=== PATIENT | male | born 1985 | race Caucasian/White ===

== ENCOUNTER → 2020-12-17 15:28 | Outpatient (BNVA) | payer SELFPAY | PROVIDERS: Family Provider Nurse Practitioner; PCP Nurse Practitioner; Visit Provider Nurse Practitioner | DX: K59.00 Constipation, unspecified (principal) | CPT/HCPCS: 74018 ==

== ENCOUNTER 2021-08-30 14:28 | Emergency (ER) | payer SELFPAY ==
[2021-08-30 14:39] VITALS: BP 134/86; PULSE 88; RESP 18; TEMP 36.6; O2SAT 99; BMI 25.1
[2021-08-30 14:48] VITALS: BP 134/86; PULSE 88; RESP 18; TEMP 36.8; O2SAT 99
--- NOTE | 2021-08-30 14:56 | ED_ITS ---
Documented by User: ALLISON Bañuelos 08/31/21 07:06 HPI - Animal Bite General: Chief Complaint: Animal Bite Stated Complaint: finger lac, dog bite Time Seen by Provider: 08/30/21 14:56 Source: patient Mode of arrival: ambulatory Limitations: no limitations History of Present Illness: Patient is a nice 36-year-old male who presents to ED today for evaluation of a right ring finger injury. Patient states just prior to arrival his household pet meribusalinas was fighting with another dog over food and he tried to break them up and his pitbull bit his finger. Last tetanus was approximately 8 to 9 years ago. complaint: animal bite Onset (ago): hour(s) Animal: dog Description of animal: household pet, immunizations UTD and appeared well Mechanism: bite Location - Extremities: Right: hand Severity scale (1-10): 10 Context: animals fighting Associated symptoms: Reports no associated symptoms Treatments prior to arrival: irrigation Related Data: Patient tetanus UTD: No Review of Systems Musc: Reports: extremity pain (R 4th finger) Skin/Breast: Reports: other (laceration/amputation R 4th finger) [facility] ED PFSH: Medical History Acid reflux Anxiety Surgical History History of inguinal hernia repair Left inguinal floor weakness, direct hernia. 2012 [facility] Family History Other Cancer Diabetes Hypertension Stroke Denies family history of Dementia Lung disease Social History Smoking and tobacco status: never smoked Second hand smoke exposure: No Smoking risk assessment/counseling performed?: No Alcohol intake: current Alcohol intake frequency: 0-2 Drinks per Day Alcohol type: beer Desire information about alcohol rehabilitation?: No Counseling given: No Desire information about substance/drug rehabilitation?: No Counseling given: No Adopted: No Caregiver/support person: No Lives independently: Yes Household members: none Housing: House Marital status: Single Number of children: 0 service: No 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 occupational 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 History of recent travel: No Current gender identity: Male Physical Exam Const: COMMON NORMALS: no acute distress, average body habitus, patient oriented x3, no limitations, healthy appearing, alert and well nourished Extremity: GENERAL: Yes normal exam except as noted RIGHT UPPER EXTREMITY: Yes hand & digits (see below) OTHER: pt has a large bite wound/amputation to the dorsal aspect of his R ring finger just proximal to the nail fold; he has avulsion of his nail and bite wound is clearly through his distal phalax; he has a small puncture wound to the volar aspect of the distal digit; no bleeding currently; distal tip at this time is normal color/temp; he reports sensation is intact Neuro: COMMON NORMALS: patient oriented x3 SENSORIUM/ORIENTATION: Yes alert Course Consultations: Consultation #1: Dr. Hammonds-will come evaluate in ED Dr. Hammonds came and evaluated injury in the ED and feels distal tip is still viable based on adequate blood supply still present and sensation still intact. Recommends extensive irrigation and loosely close wound and splint and he will follow up in office. Vital Signs: Vital signs: Vital Signs Temperature 98.2 F 08/30/21 14:48 Pulse Rate 88 08/30/21 14:48 Respiratory Rate 18 08/30/21 14:48 Blood Pressure 134/86 08/30/21 14:48 Pulse Oximetry 99 08/30/21 14:48 MDM - Animal Bite Lab Data : 08/30/21 16:50 08/30/21 16:50 Radiology Impressions Finger X-Ray 08/30/21 14:56 Impression: Fracture of the base of the distal phalanx of the right fourth finger. Laboratory Results WBC 11.2 10^3/uL (4.0-10.0) H 08/30/21 16:50 RBC 4.73 10^6/uL (4.1-5.3) 08/30/21 16:50 Hgb 14.8 g/dL (11.7-16.6) 08/30/21 16:50 Hct 44.3 % (42.0-52.0) 08/30/21 16:50 MCV 93.7 fl (80-94) 08/30/21 16:50 MCH 31.3 pg (28.0-34.0) 08/30/21 16:50 MCHC 33.4 g/dL (30.0-36.0) 08/30/21 16:50 RDW 11.9 % (12.1-15.1) L 08/30/21 16:50 Plt Count 220 10^3/cmm (130-400) 08/30/21 16:50 MPV 11.4 fL (7.4-10.4) H 08/30/21 16:50 Neut % (Auto) 81.6 % 08/30/21 16:50 Lymph % (Auto) 11.3 % 08/30/21 16:50 Patrick % (Auto) 5.8 % 08/30/21 16:50 Eos % (Auto) 0.2 % 08/30/21 16:50 Baso % (Auto) 0.4 % 08/30/21 16:50 Neut # (Auto) 9.12 10^3/uL (1.8-7.7) H 08/30/21 16:50 Lymph # (Auto) 1.3 10^3/uL (0.8-4.8) 08/30/21 16:50 Patrick # (Auto) 0.7 10^3/uL (0.2-0.9) 08/30/21 16:50 Eos # (Auto) 0.0 10^3/uL (0.0-0.8) 08/30/21 16:50 Baso # (Auto) 0.0 10^3/uL (0.0-0.1) 08/30/21 16:50 Nucleated RBC % (auto) 0 % 08/30/21 16:50 Nucleated RBCs # 0.0 /100WBC 08/30/21 16:50 Sodium 139 mmol/L (136-145) 08/30/21 16:50 Potassium 4.3 mmol/L (3.5-5.1) 08/30/21 16:50 Chloride 102 mmol/L (98-107) 08/30/21 16:50 Carbon Dioxide 25 mmol/L (22-29) 08/30/21 16:50 Anion Gap 16.3 (5-19) 08/30/21 16:50 BUN 13 mg/dL (6-20) 08/30/21 16:50 Creatinine 1.0 mg/dL (0.7-1.2) 08/30/21 16:50 GFR Calculation 84.1 mL/min (90-130) L 08/30/21 16:50 Glucose 101 mg/dL (65-115) 08/30/21 16:50 Calculated Osmolality 288 mOsm/kg (285-295) 08/30/21 16:50 Calcium 9.7 mg/dL (8.5-10.5) 08/30/21 16:50 Total Bilirubin 0.3 mg/dL (0.15-1.2) 08/30/21 16:50 AST 96 U/L (0-40) H 08/30/21 16:50 ALT 242 U/L (0-41) H 08/30/21 16:50 Alkaline Phosphatase 108 IU/L (40-130) 08/30/21 16:50 Total Protein 7.6 g/dL (6.6-8.7) 08/30/21 16:50 Albumin 4.5 g/dL (3.5-5.2) 08/30/21 16:50 Globulin 3.1 g/dL (1.3-4.6) 08/30/21 16:50 Discharge Plan Discharge Patient Disposition: Home Clinical Impression: Open fracture of distal phalanx of digit of right hand, Open wound of right ring finger due to dog bite Condition: Stable Prescriptions: New Bactrim DS 800-160 mg tablet 1 tab PO BID 10 Days Qty: 20 0RF No Action omeprazole 10 mg capsule,delayed release(DR/EC) 10 mg PO DAILY 0RF Discharge Orders: Discharge ED (Routine); Ordered 08/30/21 Ordered By: Jerrod Rajan Referrals: Alfredo Forbes, PHYSICIAN RECRUITER-C [Primary Care Provider] - Discharge Diet: Regular Discharge Activity: Limit activity as instructed Patient Instructions: Animal Bite (ED), Finger Fracture (ED), Opioid Safety Activity Restrictions/Additional Instructions: Follow-up with medical provider as directed. Case management should be contacting you in the next several days to set up an appointment with Ortho for follow-up. take medications as prescribed. Return to the ER or your medical provider if condition worsens. Please read and understand discharge instructi ons. Thank you for choosing [facility] for your healthcare needs today. Please realize this is an emergency room and that we are providing you with a medical screening exam and this may not be complete and all inclusive of all the testing and or work up that you may need to determine your ailment or severity of your illness. It is very important that you follow up as instructed or that you return to the Emergency Department should you have concerns or if your condition changes or worsens in any way. Sign Out Sign Out Data: Patient Sign Out occurred on 08/30/21 at 17:06. Patient's care was discussed, and care was transferred from to ALLISON Márquez. Coding Level of Care Code ED Tube Depatcher for Chg Fwd Exam Expanded Problem Focused Documented by User: ALLISON Márquez 08/31/21 03:23 HPI - Animal Bite General: Chief Complaint: Animal Bite Stated Complaint: finger lac, dog bite Time Seen by Provider: 08/30/21 14:56 PFS ED PFSH: Medical History Acid reflux Anxiety Surgical History History of inguinal hernia repair Left inguinal floor weakness, direct hernia. 2012 [facility] Family History Other Cancer Diabetes Hypertension Stroke Denies family history of Dementia Lung disease Social History Smoking and tobacco status: never smoked Second hand smoke exposure: No Smoking risk assessment/counseling performed?: No Alcohol intake: current Alcohol intake frequency: 0-2 Drinks per Day Alcohol type: beer Desire information about alcohol rehabilitation?: No Counseling given: No Desire information about substance/drug rehabilitation?: No Counseling given: No Adopted: No Caregiver/support person: No Lives independently: Yes Household members: none Housing: House Marital status: Single Number of children: 0 service: No 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 occupational 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 History of recent travel: No Current gender identity: Male Procedures Laceration Laceration 1: Site: hand (4th digit) Side (If applicable): right Size (cm): 2 Description: irregular Depth: simple, single layer Local Anesthetic: lidocaine 2% (Digital block performed.) Amount of anesthesia used (mL): 6 Pre-repair: irrigated extensively (Nurse irrigated the ear extensively wit h normal saline and used surgical scrub) Skin layer closed with: nylon (3 sutures) and vicryl (1 suture ) Size (cm): 4-0 Number of sutures: 4 Technique: simple, interrupted Nerve Block Nerve Block 1: Time out performed: Yes Local Anesthetic: lidocaine 2% Amount of anesthesia used (mL): 6 Side: right Nerve Blocks: digital (4th digit) Procedure Successful: Yes Patient Tolerated Procedure: well Complications: none Course Vital Signs: Vital signs: Vital Signs Temperature 98.2 F 08/30/21 14:48 Pulse Rate 88 08/30/21 14:48 Respiratory Rate 18 08/30/21 14:48 Blood Pressure 134/86 08/30/21 14:48 Pulse Oximetry 99 08/30/21 14:48 MDM - Animal Bite Medical Decision Making Patient is a 36-year-old male comes to the ED with dog bite injury to distal tip of fourth digit on right hand. Patient was handed off to me during shift change at 5 PM by Lesley Joseph PA-C. She performed the initial history, exam lab and imaging work-up. Patient has a partially amputated distal tip of fourth digit on right hand. X-ray showed a fracture of the base of the distal phalanx of the right fourth finger. She contacted Ortho and Dr. Hammonds came down and evaluated patient's finger injury in the ED and he recommended us irrigating finger really well and then applying a couple sutures to help keep distal finger attached and stabilize. He also recommended splinting the finger and putting patient on an antibiotic. He said he will see patient in clinic for follow-up. Patient was given IV Ancef here in the ED and updated tetanus. When I took over patient he just needed sutures placed. Digital block was performed with lidocaine 2%. Finger was then irrigated extensively by nurse. I then came in and placed 4 sutures on distal phalanx to stabilize and keep distal tip intact. Finger splint was then applied. Order was placed with case management for patient to be referred for follow-up with Ortho. He was discharged home with a prescription for hydrocodone for pain and Bactrim. Return to ED precautions given. Patient understood and agree with plan. Lab Data I reviewed the patient's lab results. : 08/30/21 16:50 08/30/21 16:50 Radiology Impressions Finger X-Ray 08/30/21 14:56 Impression: Fracture of the base of the distal phalanx of the right fourth finger. Laboratory Results WBC 11.2 10^3/uL (4.0-10.0) H 08/30/21 16:50 RBC 4.73 10^6/uL (4.1-5.3) 08/30/21 16:50 Hgb 14.8 g/dL (11.7-16.6) 08/30/21 16:50 Hct 44.3 % (42.0-52.0) 08/30/21 16:50 MCV 93.7 fl (80-94) 08/30/21 16:50 MCH 31.3 pg (28.0-34.0) 08/30/21 16:50 MCHC 33.4 g/dL (30.0-36.0) 08/30/21 16:50 RDW 11.9 % (12.1-15.1) L 08/30/21 16:50 Plt Count 220 10^3/cmm (130-400) 08/30/21 16:50 MPV 11.4 fL (7.4-10.4) H 08/30/21 16:50 Neut % (Auto) 81.6 % 08/30/21 16:50 Lymph % (Auto) 11.3 % 08/30/21 16:50 Patrick % (Auto) 5.8 % 08/30/21 16:50 Eos % (Auto) 0.2 % 08/30/21 16:50 Baso % (Auto) 0.4 % 08/30/21 16:50 Neut # (Auto) 9.12 10^3/uL (1.8-7.7) H 08/30/21 16:50 Lymph # (Auto) 1.3 10^3/uL (0.8-4.8) 08/30/21 16:50 Patrick # (Auto) 0.7 10^3/uL (0.2-0.9) 08/30/21 16:50 Eos # (Auto) 0.0 10^3/uL (0.0-0.8) 08/30/21 16:50 Baso # (Auto) 0.0 10^3/uL (0.0-0.1) 08/30/21 16:50 Nucleated RBC % (auto) 0 % 08/30/21 16:50 Nucleated RBCs # 0.0 /100WBC 08/30/21 16:50 Sodium 139 mmol/L (136-145) 08/30/21 16:50 Potassium 4.3 mmol/L (3.5-5.1) 08/30/21 16:50 Chloride 102 mmol/L (98-107) 08/30/21 16:50 Carbon Dioxide 25 mmol/L (22-29) 08/30/21 16:50 Anion Gap 16.3 (5-19) 08/30/21 16:50 BUN 13 mg/dL (6-20) 08/30/21 16:50 Creatinine 1.0 mg/dL (0.7-1.2) 08/30/21 16:50 GFR Calculation 84.1 mL/min (90-130) L 08/30/21 16:50 Glucose 101 mg/dL (65-115) 08/30/21 16:50 Calculated Osmolality 288 mOsm/kg (285-295) 08/30/21 16:50 Calcium 9.7 mg/dL (8.5-10.5) 08/30/21 16:50 Total Bilirubin 0.3 mg/dL (0.15-1.2) 08/30/21 16:50 AST 96 U/L (0-40) H 08/30/21 16:50 ALT 242 U/L (0-41) H 08/30/21 16:50 Alkaline Phosphatase 108 IU/L (40-130) 08/30/21 16:50 Total Protein 7.6 g/dL (6.6-8.7) 08/30/21 16:50 Albumin 4.5 g/dL (3.5-5.2) 08/30/21 16:50 Globulin 3.1 g/dL (1.3-4.6) 08/30/21 16:50 Discharge Plan Discharge Patient Disposition: Home Clinical Impression: Open fracture of distal phalanx of digit of right hand, Open wound of right ring finger due to dog bite Condition: Stable Prescriptions: New Bactrim DS 800-160 mg tablet 1 tab PO BID 10 Days Qty: 20 0RF No Action omeprazole 10 mg capsule,delayed release(DR/EC) 10 mg PO DAILY 0RF Discharge Orders: Discharge ED (Routine); Ordered 08/30/21 Ordered By: Jerrod Rajan Referrals: Alfredo Forbes, JAMILC [Primary Care Provider] - Discharge Diet: Regular Discharge Activity: Limit activity as instructed Patient Instructions: Animal Bite (ED), Finger Fracture (ED), Opioid Safety Activity Restrictions/Additional Instructions: Follow-up with medical provider as directed. Case management should be contacting you in the next several days to set up an appointment with Ortho for follow-up. take medications as prescribed. Return to the ER or your medical provider if condition worsens. Please read and understand discharge instructions. Thank you for choosing [facility] for your healthcare needs today. Carlee ramos realize this is an emergency room and that we are providing you with a medical screening exam and this may not be complete and all inclusive of all the testing and or work up that you may need to determine your ailment or severity of your illness. It is very important that you follow up as instructed or that you return to the Emergency Department should you have concerns or if your condition changes or worsens in any way. Sign Out Sign Out Data: Patient Sign Out occurred on 08/30/21 at 17:06. Patient's care was discussed, and care was transferred from to ALLISON Márquez. Coding Level of Care Code ED Tube Depatcher for Angelo Fwd Exam Expanded Problem Focused
--- NOTE | 2021-08-30 14:56 | XR_ITS ---
WS: [id number] 2 views of the right fourth finger, 08/30/2021 Clinical Data: trauma; animal bite; 4th Comparison: None. Findings: There is a comminuted fracture of the base of the distal phalanx of the right fourth finger with asso ciated soft tissue injury on the dorsal surface. No other fractures are seen. The joint spaces are normal. XR/XR finger RT min 2V 52519 Impression: Fracture of the base of the distal phalanx of the right fourth finger.
[2021-08-30] MEDS: tetanus-diphtheria tox (adult) 0.5 mL SDV IM (15:12)
[2021-08-30] MEDS: ceFAZolin 1,000 mg SDV 1000 MG IVP (16:38)
[2021-08-30 17:00] LABS: Basophils % 0.4 %; Eosinophils % 0.2 %; Hematocrit 44.3 % (42.0-52.0); Hemoglobin 14.8 g/dL (11.7-16.6); Lymphocytes # 1.3 10^3/uL (0.8-4.8); Lymphocytes % 11.3 %; Mean Corpuscular HGB Conc 33.4 g/dL (30.0-36.0); Mean Corpuscular Hemoglobin 31.3 pg (28.0-34.0); Mean Corpuscular Volume 93.7 fl (80-94); Mean Platelet Volume 11.4 fL (7.4-10.4); Monocytes # 0.7 10^3/uL (0.2-0.9); Monocytes % 5.8 %; Neutrophils # 9.12 10^3/uL (1.8-7.7); Neutrophils % 81.6 %; Nucleated Red Blood Cells % 0 %; Platelet Count 220 10^3/cmm (130-400); Red Blood Count 4.73 10^6/uL (4.1-5.3); Red Cell Distribution Width 11.9 % (12.1-15.1); White Blood Count 11.2 10^3/uL (4.0-10.0)
[2021-08-30] MEDS: lidocaine 2% INJ 20 mL INJECTION (17:19)
[2021-08-30 17:23] LABS: Alanine Aminotransferase 242 U/L (0-41); Albumin Level 4.5 g/dL (3.5-5.2); Alkaline Phosphatase 108 IU/L (40-130); Anion Gap 16.3 (5-19); Aspartate Amino Transferase 96 U/L (0-40); Blood Urea Nitrogen 13 mg/dL (6-20); Calcium 9.7 mg/dL (8.5-10.5); Carbon Dioxide 25 mmol/L (22-29); Chloride 102 mmol/L (98-107); Globulin 3.1 g/dL (1.3-4.6); Glomerular Filtration Rate 84.1 mL/min (90-130); Glucose 101 mg/dL (65-115); Osmolality Calculated 288 mOsm/kg (285-295); Potassium 4.3 mmol/L (3.5-5.1); Sodium 139 mmol/L (136-145); Total Bilirubin 0.3 mg/dL (0.15-1.2); Total Protein 7.6 g/dL (6.6-8.7)
--- NOTE | 2021-08-31 10:11 | DCPLANNER ---
Addendum entered by Gemma Mccarthy 09/24/21 08:50: Patient had a follow up appointment scheduled with ortho - patient did attend appointment. Addendum entered by Gemma Mccarthy 09/06/21 09:22: Patient has a follow up appointment scheduled for Monday, September 08, 2021 at 10:[address] Hammonds at ortho. Clinic will call patient with appointment information. Original Note: administrative assistant office manager had message to schedule a follow up appointment for patient with ortho. administrative assistant office manager called the ortho clinic, spoke with Mai, gave clinic patients information. administrative assistant office manager was told that patients information would be printed and reviewed. Clinic will call patient with appointment information.
== END 2021-08-30 18:15 | disposition home or self-care (01) ==
PROVIDERS: Physician Assistant; Emergency Provider Physician Assistant; PCP Nurse Practitioner
DX: S62.634B Displaced fracture of distal phalanx of right ring finger, initial encounter for open fracture (principal); S61.354A Open bite of right ring finger with damage to nail, initial encounter; W54.0XXA Bitten by dog, initial encounter; Z23 Encounter for immunization
CPT/HCPCS: 73140; 80053; 85025; 90471; 90714; 96374; 99283; J0690

== ENCOUNTER → 2021-10-01 11:49 | Outpatient (BNVA) | payer SELFPAY | PROVIDERS: PCP Nurse Practitioner; Visit Provider Orthopaedic Surgery | DX: S62.634B Displaced fracture of distal phalanx of right ring finger, initial encounter for open fracture (principal); W54.0XXA Bitten by dog, initial encounter | CPT/HCPCS: 87070; 87075; 87205 ==

== ENCOUNTER → 2021-10-05 10:53 | Outpatient (BNVA) | payer SELFPAY | PROVIDERS: PCP Nurse Practitioner; Visit Provider Orthopaedic Surgery | DX: S62.634A Displaced fracture of distal phalanx of right ring finger, initial encounter for closed fracture (principal); X58.XXXA Exposure to other specified factors, initial encounter | CPT/HCPCS: 73130 ==

== ENCOUNTER → 2021-10-26 11:19 | Outpatient (BNVA) | payer SELFPAY | PROVIDERS: PCP Nurse Practitioner; Visit Provider Orthopaedic Surgery | DX: S62.634D Displaced fracture of distal phalanx of right ring finger, subsequent encounter for fracture with routine healing (principal); X58.XXXD Exposure to other specified factors, subsequent encounter | CPT/HCPCS: 73130 ==

== ENCOUNTER 2023-11-15 09:31 | Outpatient (CLI) | payer SELFPAY ==
--- NOTE | 2023-11-15 10:00 | US_ITS ---
WS: [id number] RIGHT UPPER QUADRANT ULTRASOUND HISTORY: epigastric pain COMPARISON: 07/22/2011 Liver: 16.8 cm in length. Normal size liver. Scattered areas of focal fatty sparing. Portal Vein: Normal hepatopetal flow with monophasic waveform. Gallbladder: Normally distended gallbladder with no stones or wall thickening. CBD: 0.3 cm Pancreas: Partially visualized. No abnormality identified. Right kidney: 11.2 cm in length. Normal size and echogenicity. No hydronephrosis or mass. Aorta and IVC: Partially obscured. Difficult to visualize. Mild atherosclerosis aorta. No ascites. US/US gall bladder 32334 IMPRESSION: 1. Normal gallbladder. No cholelithiasis. 2. Mild hepatic steatosis with a few areas of focal fatty sparing by the gallb ladder.
== END 2023-11-15 09:32 | disposition home or self-care (01) ==
LOC: RAD 09:31
PROVIDERS: PCP Family Medicine; Visit Provider Surgery
DX: R10.13 Epigastric pain (principal); K76.0 Fatty (change of) liver, not elsewhere classified
CPT/HCPCS: 76705

== ENCOUNTER 2023-12-26 05:50 | Day surgery (SDC) | payer BC, MEDICAID, SELFPAY ==
[2023-12-26] VITALS (11 sets, daily range): BP systolic 133–159; BP diastolic 84–107; PULSE 88–121; RESP 14–19; TEMP 36.1–36.9; O2SAT 93–99; BMI 25.2
[2023-12-26] MEDS: sodium chloride 0.9% 1,000 ML 30 ML IV (06:29)
--- NOTE | 2023-12-26 06:43 | ANES.PREANE2 ---
Pre-Anesthetic Assessment Height/Weight: Height 1.78 m Weight 79.832 kg Temp Pulse Resp BP Pulse Ox O2 Del Method 97.0 F L 88 17 159/107 98 Room Air 12/26/23 06:10 12/26/23 06:10 12/26/23 06:10 12/26/23 06:10 12/26/23 06:10 12/26/23 06:24 Operation Date: 12/26/23 07:55 Proposed Procedures p Laparoscopic Recurrent LEFT Inguinal Hernia Repair w/Mesh 16649, K40.91(Left) - Elio Hernandez DO Familial anesthetic complications: None Was Beta Cary taken within 24 hours: N/A Was Clonidine taken within 24 hours: N/A Last intake: Intake Last Liquid Date 12/25/23 Last Liquid Time 20:30 Last Solid Date 12/25/23 Last Solid Time 20:30 Social Alcohol (1-3 beers a night) and No tobacco Exam alert, oriented x 3, clear to auscultation bilaterally and regular rate & rhythm Airway Mallampati: Class I Dentition: full CV/HEM Hypertension GI Hiatal Hernia Anesthetic Plan ASA status: 2 Anesthesia: General Risk of > 500 ml blood loss (7ml/kg in children): No Medications/Allergies Home Medications Medication Instructions Recorded Confirmed Last Taken Type clonazepam 0.5 mg tablet 0.5 mg PO BID #20 tabs 08/24/23 12/26/23 12/26/23 05:00 Rx omeprazole 40 mg capsule,delayed 40 mg PO BID 12/25/23 12/26/23 12/25/23 History release Allergies Allergy/AdvReac Type Severity Reaction Status Date / Time Penicillins Allergy swelling Verified 12/26/23 06:04 Current Medications Generic Name Dose Route Start Last Admin Trade Name Freq PRN Reason Stop Dose Admin Sodium Chloride 1,000 mls @ 30 mls/hr 12/26/23 06:00 12/26/23 06:29 Sodium Chloride 0.9% IV 12/27/23 05:59 30 mls/hr .Q24H JUAN RAMON Administration PFSH Anesthesia Medical History (Updated 09/14/23 @ 09:24 by Elio Hernandez DO) Acid reflux Anxiety Surgical History (Updated 09/14/23 @ 09:24 by Elio Hernandez DO) History of inguinal hernia repair Left inguinal floor weakness, direct hernia. 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
--- NOTE | 2023-12-26 06:48 | PM.HP ---
Providers/Chief Complaint Primary Care Provider: Mai Multani MD Chief Complaint: K40.91 History of Present Illness González Wade is a 38 year old male Review of Systems General: Reports: 10 or more systems reviewed and unremarkable except in HPI and below Medications/Allergies Home Medications Medication Instructions Recorded Confirmed Last Taken Type clonazepam 0.5 mg tablet 0.5 mg PO BID #20 tabs 08/24/23 12/26/23 12/26/23 05:00 Rx omeprazole 40 mg capsule,delayed 40 mg PO BID 12/25/23 12/26/23 12/25/23 History release Allergies Allergy/AdvReac Type Severity Reaction Status Date / Time Penicillins Allergy swelling Verified 12/26/23 06:04 PFSH Acute PFSH: Medical History (Updated 09/14/23 @ 09:24 by Elio Hernandez DO) Acid reflux Anxiety Surgical History (Updated 09/14/23 @ 09:24 by Elio Hernandez DO) History of inguinal hernia repair Left inguinal floor weakness, direct hernia. 2011 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 Do you think of yourself as: Straight/Heterosexual Current gender identity: Male Vitals/I&O/Wt Last Vital Signs Temp 97.0 F L 12/26/23 06:10 Pulse 88 12/26/23 06:10 Resp 17 12/26/23 06:10 BP 159/107 12/26/23 06:10 Pulse Ox 98 12/26/23 06:10 O2 Del Method Room Air 12/26/23 06:24 Weight last 48 hrs Weight 176 lb A&P Assessment and plan (1) History of inguinal hernia repair: (2) Recurrent left inguinal hernia: Plan Laparoscopic recurrent left inguinal hernia repair with mesh Attestations Medical Necessity Statement*: HOME Coding Level of Care Code Acute Code for Chg Fwd Diagnoses History of inguinal hernia repair Z98.890; Z87.19 Recurrent left inguinal hernia K40.91
[2023-12-26] MEDS: vancomycin 1,500 MG/300 ML PIGGYBACK 200 MG IV (06:55)
[2023-12-26] MEDS: midazolam 1 mg/mL INJ 2 mL 2 MG IVP (07:02)
[2023-12-26] MEDS: lidocaine-epi 2% PF 1:200,000 20 mL SDV XX (08:08)
[2023-12-26] MEDS: tranexamic acid 1,000 mg/10mL SDV 1000 MG XX (08:26)
--- NOTE | 2023-12-26 08:56 | PM.OP ---
Operative Report Date of procedure: December 26, 2023 Pre-op diagnosis: Recurrent left inguinal hernia Post-op diagnosis: Recurrent left inguinal hernia Indirect right inguinal hernia Procedure done: Laparoscopic (TEPP) repair of recurrent left inguinal hernia with mesh Laparoscopic (TEPP) repair of right inguinal hernia with mesh Implants: Left large laparoscopic inguinal hernia mesh Right extra-large 3D max Bard mesh Specimens removed/disposition: None Surgeon: Elio Hernandez DO Anesthesia: General and Local Estimated blood loss (mL): 5 Complications: None apparent Brief History: This is a very pleasant 38-year-old gentleman with a recurrent left inguinal hernia. Laparoscopic repair with mesh was indicated the risks and benefits of procedure, including the possibility of a bilateral repair, were explained to the patient. He is understanding of the risks and wished to proceed Procedure: Patient was wheeled into the operative room and placed on the OR table in a supine position. Abdomen was inspected prepped and draped in usual sterile fashion. Time-out was performed and all present were in agreement. A 15 blade scalpel was used to make 1.2 centimeter incision infraumbilically. Combination of sharp and blunt dissection was performed down to the anterior rectus sheath which was opened sharply. The dissecting balloon was then inserted into the space of Retzius and blown up. We put the camera into the port and identified that we were in the correct space. I then placed 2 5 millimeter trocars suprapubically in the midline. I then used endokitners to bluntly dissect in the space of Retzius out laterally. A recurrent left inguinal hernia was identified. There was extensive scarring in this area and some bleeding from the dissection. Patient was given 1 g of TXA. Blunt dissection was performed to dissect down the hernia sac until the vas deferens dove medially. A large 3D max Bard left inguinal mesh was then placed into the space of Retzius. The mesh was unrolled and tacked once medially at the pubic bone. The mesh laid out nicely over the spermatic cord. An indirect inguinal hernia was identified on the right. Blunt dissection was performed to dissect down the hernia sac until the vas deferens dove medially. An extra-large 3D max Bard right inguinal mesh was then placed into the space of Retzius. The mesh was unrolled and tacked once medially at the pubic bone. The mesh laid out nicely over the spermatic cord. Hernia sacs were held underneath the meshes as the insufflation was released. Incisions were closed with 4 O Vicryl in a subcuticular interrupted fashion. Skin glue was applied. Patient tolerated the procedure well.
[2023-12-26] MEDS: tranexamic acid 1,000 mg/10mL SDV 1000 MG IV (09:39)
--- NOTE | 2023-12-26 10:30 | ANE.PACU2 ---
Inpatient post-anesthesia follow up: Airway intact: Yes Vital signs: Temperature 97.7 F Pulse Rate 95 Respiratory Rate 16 Blood Pressure 135/90 Pulse Oximetry 99 Oxygen Delivery Me thod Room Air Oxygen Flow Rate Fraction of Inspir ed Oxygen Hydration adequate: Yes Nausea and vomiting: No Pain level: 1 Mental status: Baseline
== END 2023-12-26 10:33 | disposition home or self-care (01) ==
PROVIDERS: PCP Family Medicine; Visit Provider Surgery
PROC: (CPT 49650; principal; 2023-12-26 07:55)
DX: K40.91 Unilateral inguinal hernia, without obstruction or gangrene, recurrent (principal); I10 Essential (primary) hypertension; K21.9 Gastro-esophageal reflux disease without esophagitis
CPT/HCPCS: 49651; 51702; C1781; J0131; J1100; J1170; J1885; J2250; J2405; J2704; J2710; J3010; J3370; J3490; J7030

== ENCOUNTER 2024-01-17 09:15 | Day surgery (SDC) | payer BC, MEDICAID, SELFPAY ==
[2024-01-17 09:29] VITALS: BP 145/101; PULSE 94; RESP 18; TEMP 36.3; O2SAT 98
[2024-01-17] MEDS: sodium chloride 0.9% 1,000 ML 30 ML IV (09:37)
--- NOTE | 2024-01-17 09:46 | P.ANESASSM_ITS ---
Pre-Anesthetic Assessment Height/Weight: Height 1.78 m Weight 79.832 kg Temp Pulse Resp BP Pulse Ox O2 Del Method 97.3 F L 94 18 145/101 98 Room Air 01/17/24 09:29 01/17/24 09:29 01/17/24 09:29 01/17/24 09:29 01/17/24 09:29 01/17/24 09:29 Operation Date: 01/17/24 10:30 Proposed Procedures p EGD 32931, R10.13(Not Applicable) - Elio Hernandez DO Familial anesthetic complications: None Was Beta Cary taken within 24 hours: N/A Was Clonidine taken within 24 hours: N/A Last intake: Intake Last Liquid Date 01/16/24 Last Liquid Time 22:00 Last Solid Date 01/16/24 Last Solid Time 21:00 Social Alcohol (3-4 beers a night) and No tobacco Exam alert, oriented x 3, clear to auscultation bilaterally and regular rate & rhythm Airway Mallampati: Class I Dentition: full GI Gastroesophageal Reflux Disease Neuropsych Anxiety Anesthetic Plan ASA status: 2 Anesthesia: MAC Risk of > 500 ml blood loss (7ml/kg in children): No Medications/Allergies Home Medications Medication Instructions Recorded Confirmed Last Taken Type clonazepam 0.5 mg tablet 0.5 mg PO BID #20 tabs 08/24/23 01/17/24 01/16/24 Rx pantoprazole 40 mg tablet,delayed 40 mg PO BID 2 months #120 tabs 01/08/24 01/17/24 01/16/24 Rx release (Protonix) Allergies Allergy/AdvReac Type Severity Reaction Status Date / Time Penicillins Allergy swelling Verified 01/15/24 08:53 Current Medications Generic Name Dose Route Start Last Admin Trade Name Freq PRN Reason Stop Dose Admin Sodium Chloride 1,000 mls @ 30 mls/hr 01/17/24 09:30 01/17/24 09:37 Sodium Chloride 0.9% IV 01/18/24 09:29 30 mls/hr .Q24H JUAN RAMON Administration PFSH Anesthesia Medical History Acid reflux Anxiety Surgical History (Updated 01/08/24 @ 13:49 by Elio Hernandez DO) History of bilateral inguinal hernia repair History of inguinal hernia repair Left inguinal floor weakness, direct hernia. 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
[2024-01-17] MEDS: midazolam 1 mg/mL INJ 2 mL 2 MG IVP (09:50)
--- NOTE | 2024-01-17 10:35 | W.PM.OPSUD ---
Surgery/Procedure H&P Update DATE OF PROCEDURE: January 17, 2024 DATE H&P PERFORMED: 01/08/24 H&P UPDATE INFORMATION: I have reviewed H&P completed within last 30 days, I have examined patient prior to procedure and No changes to prior documentation PLANNED PROCEDURE: Operation Date: 01/17/24 10:30 Proposed Procedures p EGD 75648, R10.13(Not Applicable) - Elio Hernandez, DO
[2024-01-17 10:41] VITALS: BP 141/94; PULSE 85; RESP 16; TEMP 36.1; O2SAT 97
[2024-01-17 10:55] VITALS: BP 137/89; PULSE 78; RESP 16; TEMP 36.6; O2SAT 97
--- NOTE | 2024-01-17 11:35 | ANE.PACU2 ---
Inpatient post-anesthesia follow up: Airway intact: Yes Vital signs: Temperature 97.8 F Pulse Rate 78 Respiratory Rate 16 Blood Pressure 137/89 Pulse Oximetry 97 Oxygen Delivery Me thod Room Air Oxygen Flow Rate Fraction of Inspir ed Oxygen Hydration adequate: Yes Nausea and vomiting: No Pain level: 1 Mental status: Baseline
== END 2024-01-17 11:37 | disposition home or self-care (01) ==
PROVIDERS: PCP Family Medicine; Visit Provider Surgery
PROC: 0DJ08ZZ Inspection of Upper Intestinal Tract, Via Natural or Artificial Opening Endoscopic (ICD-10-PCS; CPT 43235; principal; 2024-01-17 10:30)
DX: R10.12 Left upper quadrant pain (principal); K21.9 Gastro-esophageal reflux disease without esophagitis; F41.9 Anxiety disorder, unspecified; F17.200 Nicotine dependence, unspecified, uncomplicated
CPT/HCPCS: 43239; 88305; J2250; J2704; J7030

== ENCOUNTER 2024-03-07 05:56 | Day surgery (SDC) | payer BC, MEDICAID, SELFPAY ==
[2024-03-07] VITALS (11 sets, daily range): BP systolic 147–172; BP diastolic 81–112; PULSE 76–108; RESP 16–18; TEMP 36.1–36.3; O2SAT 94–100; BMI 25.8
[2024-03-07] MEDS: sodium chloride 0.9% 1,000 ML 30 ML IV (06:19)
--- NOTE | 2024-03-07 06:58 | W.PM.OPSUD ---
Surgery/Procedure H&P Update DATE OF PROCEDURE: March 07, 2024 DATE H&P PERFORMED: 02/26/24 H&P UPDATE INFORMATION: I have reviewed H&P completed within last 30 days, I have examined patient prior to procedure and No changes to prior documentation PLANNED PROCEDURE: Operation Date: 03/07/24 08:15 Proposed Procedures p Laparoscopic Cholecystectomy 38642, R10.13(Not Applicable) - Elio Hernandez, DO
[2024-03-07] MEDS: vancomycin 1,500 MG/300 ML PIGGYBACK 200 MG IV (07:05)
--- NOTE | 2024-03-07 07:32 | ANES.PREANE2 ---
Pre-Anesthetic Assessment Height/Weight: Height 5 ft 10 in Weight 180 lb Temp Pulse Resp BP Pulse Ox O2 Del Method 97.0 F L 96 18 147/81 98 Room Air 03/07/24 06:13 03/07/24 06:13 03/07/24 06:13 03/07/24 06:13 03/07/24 06:13 03/07/24 06:15 Preop Diagnosis: Cholecystitis Operation Date: 03/07/24 08:15 Proposed Procedures p Laparoscopic Cholecystectomy 10814, R10.13(Not Applicable) - Elio Hernandez DO Was Beta Cary taken within 24 hours: N/A Was Clonidine taken within 24 hours: N/A Social Alcohol Uses marijuana Exam alert, oriented x 3, clear to auscultation bilaterally and regular rate & rhythm Anesthetic Plan ASA status: 2 Anesthesia: General Other: No prior issues with anesthesia NPO since yesterday History of GERD, on Protonix Anxiety, takes clonazepam Marijuana and alcohol use METs greater than 4 Plan for GETA Medications/Allergies Home Medications Medication Instructions Recorded Confirmed Last Taken Type pantoprazole 40 mg tablet,delayed 40 mg PO BID 2 months #120 tabs 01/08/24 03/06/24 03/06/24 Rx release (Protonix) ondansetron 8 mg disintegrating 8 mg PO Q8H PRN nausea and 02/26/24 03/07/24 Unknown Rx tablet vomiting #20 tabs clonazepam 0.5 mg tablet 0.5 mg PO BID #60 tabs 02/28/24 03/06/24 03/07/24 Rx Allergies Allergy/AdvReac Type Severity Reaction Status Date / Time Penicillins Allergy swelling Verified 03/07/24 06:21 Current Medications Generic Name Dose Route Start Last Admin Trade Name Freq PRN Reason Stop Dose Admin Sodium Chloride 1,000 mls @ 30 mls/hr 03/07/24 06:15 03/07/24 06:19 Sodium Chloride 0.9% IV 03/08/24 06:14 30 mls/hr .Q24H JUAN RAMON Administration PFSH Anesthesia Medical History Acid reflux Anxiety Surgical History History of bilateral inguinal hernia repair History of inguinal hernia repair Left inguinal floor weakness, direct hernia. 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
[2024-03-07] MEDS: lidocaine-epi 2% PF 1:200,000 20 mL SDV 5 ML XX (08:49)
--- NOTE | 2024-03-07 09:02 | P.OP_ITS ---
Operative Report Date of procedure: March 07, 2024 Surgeon: Elio Hernandez DO Brief History: This very pleasant 39-year-old gentleman presented my office with biliary colic. EGD essentially within normal limits and this GERD was treated with pantoprazole. His pain did not resolve and he decided cholecystectomy which was indicated. The risks and benefits were explained and documented. Procedure: Preoperative diagnosis: Biliary colic Postoperative diagnosis: Same Procedure performed: Laparoscopic cholecystectomy Surgeon: Dr. Elio Hernandez DO Estimated blood loss: 5 mL Specimens: Gallbladder to pathology Complications: None apparent Description of procedure: Patient was wheeled into the operative room and placed on the OR table in a supine position. Abdomen was inspected prepped and draped in usual sterile fashion. Time-out was performed and all present were in agreement. A 15 blade scalp was used to make a stab incision in the left upper quadrant and intra- abdominal insufflation was achieved using a Veress needle. After localizing the tissue incisions were made and a 5 millimeter trocar was placed into the umbilicus as well as 2 in the right upper quadrant. A 12 millimeter trocar was placed in the epigastrium. Gallbladder was grasped and elevated. The triangle of Calot was carefully dissected using blunt dissection and electrocautery until the triangle of Calot clearly identified. The cystic duct was clipped proximally and double clipped distally. The duct was then ligated proximally. The cystic artery was doubly clipped and ligated. The gallbladder was then removed from the liver bed using electrocautery. The gallbladder was removed from the abdomen using an Endo-Catch bag through the epigastric incision. The liver bed was inspected and no bleeding was seen. The abdomen was irrigated and suctioned. All ports removed. Skin was washed and dried. Incisions were closed with 4-0 Monocryl in a subcuticular interrupted fashion. Skin glue was applied. Patient tolerated the procedure well.
[2024-03-07] MEDS: fentaNYL 50 mcg/mL INJ 2mL IVP (09:20)
[2024-03-07] MEDS: HYDROcodone-acetaminophen 7.5-325 mg Tablet 1 TAB PO (09:57)
--- NOTE | 2024-03-07 10:40 | ANE.PACU2 ---
Inpatient post-anesthesia follow up: Airway intact: Yes Vital signs: Temperature 97.1 F Pulse Rate 84 Respiratory Rate 18 Blood Pressure 159/100 Pulse Oximetry 96 Oxygen Delivery Me thod Room Air Oxygen Flow Rate 8 Fraction of Inspir ed Oxygen Hydration adequate: Yes Nausea and vomiting: No Pain level: 1 Mental status: Baseline
== END 2024-03-07 10:40 | disposition home or self-care (01) ==
PROVIDERS: PCP Family Medicine; Visit Provider Surgery
PROC: 0FT44ZZ Resection of Gallbladder, Percutaneous Endoscopic Approach (ICD-10-PCS; CPT 47562; principal; 2024-03-07 08:05)
DX: K81.1 Chronic cholecystitis (principal); K21.9 Gastro-esophageal reflux disease without esophagitis; F41.9 Anxiety disorder, unspecified
CPT/HCPCS: 47562; 88304; J0131; J1100; J2405; J2704; J2710; J3010; J3370; J3490; J3535; J7030

== ENCOUNTER 2024-03-18 20:25 | Emergency (ER) | payer BC, MEDICAID, SELFPAY ==
[2024-03-18 20:29] VITALS: BP 157/99; PULSE 86; TEMP 36.5; O2SAT 99; BMI 26.2
[2024-03-18 20:43] VITALS: RESP 18
--- NOTE | 2024-03-18 20:45 | ED_ITS ---
HPI - Animal Bite 2 General: Chief Complaint: Animal Bite Stated Complaint: snake bites both ankles Time Seen by Provider: 03/18/24 20:38 Source: patient Mode of arrival: ambulatory Limitations: no limitations History of Present Illness: 39-year-old male states he was walking d own his porch barefooted roughly an hour ago and believes he was bit by a steak he felt sharp pain in both of his feet does have 2 small puncture wounds to the left ankle with some slight swelling has had 1 small puncture wound to the right foot with no swelling states pain is left foot is worse rates it a 6 out of 10. Denies any other injuries. He is unsure when his last tetanus was Associated symptoms: Deny chills, fever(s) or headache(s) Related Data Previous Rx's Medication Instructions Recorded pantoprazole 40 mg tablet,delayed 40 mg PO BID 2 months #120 tabs 01/08/24 release (Protonix) ondansetron 8 mg disintegrating 8 mg PO Q8H PRN nausea and 02/26/24 tablet vomiting #20 tabs clonazepam 0.5 mg tablet 0.5 mg PO BID #60 tabs 02/28/24 docusate sodium 100 mg capsule 100 mg PO BID #14 caps 03/07/24 (Colace) hydrocodone 7.5 mg-acetaminophen 1 tab PO Q6H PRN pain #20 tabs 03/07/24 325 mg tablet polyethylene glycol 3350 17 17 g PO DAILY #119 grams 03/07/24 gram/dose oral powder (Miralax) hydrocodone 5 mg-acetaminophen 325 1 tab PO Q6H PRN pain #8 tabs 03/18/24 mg tablet Allergies Allergy/AdvReac Type Severity Reaction Status Date / Time Penicillins Allergy swelling Verified 03/18/24 20:36 Review of Systems 2 Const: Denies: fever(s), chills, body aches or change in appetite ENMT: Denies: throat pain or dental pain Card: Denies: chest pain Resp: Denies: dyspnea GI: Denies: abdominal pain, nausea, vomiting or diarrhea Musc: Reports: extremity pain; Denies: neck pain or back pain Skin/Breast: Denies: rash Neuro: Denies: headache(s) PFSH ED 2 PFSH: Medical History Acid reflux Anxiety Surgical History History of bilateral inguinal hernia repair History of inguinal hernia repair Left inguinal floor weakness, direct hernia. 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 Do you think of yourself as: Straight/Heterosexual Current gender identity: Male Physical Exam 2 Const: COMMON NORMALS: no acute distress, patient oriented x3 and healthy appearing HENMT: COMMON NORMALS: normocephalic and atraumatic HEAD & SCALP: n ormocephalic and atraumatic Neck/C-Spine: COMMON NORMALS: full ROM and supple Chest: COMMONS NORMALS: normal inspection of the chest Resp: COMMON NORMALS: normal respiratory effort Cardio: COMMON NORMALS: regular rate RATE: regular rate Extremity: COMMON NORMALS: full ROM NARRATIVE EXTREMITY EXAM: 2 puncture wounds noted to left lateral ankle with minimal swelling 1 small puncture wound to right ankle with minimal swelling as well Neuro: COMMON NORMALS: patient oriented x3, moves all extremities and no focal motor deficits Psych: COMMON NORMALS: mental status grossly normal, Normal thought process present and cooperative THOUGHT PROCESS: Normal thought process present Skin: COMMON NORMALS: no rashes or lesions noted GENERAL SKIN EXAM: no rashes or lesions noted Course 2 Vital Signs: Vital signs: Vital Signs Temperature 97.7 F 03/18/24 20:29 Pulse Rate 96 03/18/24 21:30 Respiratory Rate 16 03/18/24 21:30 Blood Pressure 139/99 03/18/24 21:30 Pulse Oximetry 96 03/18/24 21:30 Oxygen Delivery Me thod Room Air 03/18/24 21:30 MDM - Animal Bite Medical Decision Making Patient presents after a snakebite he has been very minimal swelling patient this time is wanting to go home I informed would like to observe him for longer but he states he feels fine and said he did return if his swelling worsens will discharge at this time prescribe pain meds he is to return if worsening he understands agrees to plan Medical Records I reviewed the patient's medical records. Lab Data I reviewed the patient's lab results. 03/18/24 21:11 03/18/24 21:11 Laboratory Results WBC 6.45 10^3/uL (3.29-11.43) 03/18/24 21:11 RBC 4.98 10^6/uL (3.85-5.65) 03/18/24 21:11 Hgb 15.30 g/dL (11.27-16.99) 03/18/24 21:11 Hct 45.4 % (37-53) 03/18/24 21:11 MCV 91.2 fl (82-101) 03/18/24 21:11 MCH 30.7 pg (27-33) 03/18/24 21:11 MCHC 33.7 g/dL (30-55) 03/18/24 21:11 RDW 12.0 % (12.1-15.1) L 03/18/24 21:11 Plt Count 223 10^3/cmm (157-399) 03/18/24 21:11 MPV 10.3 fL (7.4-10.4) 03/18/24 21:11 Neut % (Auto) 52.4 % 03/18/24 21:11 Lymph % (Auto) 38.4 % 03/18/24 21:11 [place] % (Auto) 7.0 % 03/18/24 21:11 Eos % (Auto) 1.4 % 03/18/24 21:11 Baso % (Auto) 0.5 % 03/18/24 21:11 Neut # (Auto) 3.38 10^3/uL (1.8-7.7) 03/18/24 21:11 Lymph # (Auto) 2.5 10^3/uL (0.8-4.8) 03/18/24 21:11 [place] # (Auto) 0.5 10^3/uL (0.2-0.9) 03/18/24 21:11 Eos # (Auto) 0.1 10^3/uL (0.0-0.8) 03/18/24 21:11 Baso # (Auto) 0.0 10^3/uL (0.0-0.1) 03/18/24 21:11 Nucleated RBC % (auto) 0 % 03/18/24 21:11 Nucleated RBCs # 0.0 /100WBC 03/18/24 21:11 No radiology studies performed this visit Discharge Plan Discharge Patient Disposition: Home Clinical Impression: Snake bite Condition: Stable Prescriptions: New hydrocodone-acetaminophen 5-325 mg tablet 1 tab PO Q6H PRN (Reason: pain) Qty: 8 0RF No Action pantoprazole [Protonix] 40 mg tablet,delayed release (DR/EC) 40 mg PO BID 60 Days Qty: 120 0RF ondansetron 8 mg tablet,disintegrating 8 mg PO Q8H PRN (Reason: nausea and vomiting) Qty: 20 0RF clonazepam 0.5 mg tablet 0.5 mg PO BID Qty: 60 0RF Hold Instructions: Resume on 03/08/24. hydrocodone-acetaminophen 7.5-325 mg tablet 1 tab PO Q6H PRN (Reason: pain) Qty: 20 0RF Colace 100 mg capsule 100 mg PO BID Qty: 14 0RF Miralax 17 gram/dose powder 17 g PO DAILY Qty: 119 0RF Discharge Orders: Discharge ED (Routine); Ordered 03/18/24 Ordered By: Guy Serna Referrals: Mai Multani MD [Primary Care Provider] - 4-7 days Discharge Diet: Advance as tolerated Discharge Activity: Resume usual activity Patient Instructions: Snake Bite (ED) Coding Level of Care Code ED Junior Mechanical Engineer for Angelo Miller
--- NOTE | 2024-03-18 20:53 | PC.NURSE ---
patient declines iv morphine and zofran. requests [facility]. notified dr lara
[2024-03-18] MEDS: tetanus-dipt-pertussis 0.5 mL SDV IM (21:00)
[2024-03-18] MEDS: HYDROcodone-acetaminophen 7.5-325 mg Tablet 1 TAB PO (21:03)
[2024-03-18 21:22] LABS: Basophils % 0.5 %; Eosinophils # 0.1 10^3/uL (0.0-0.8); Eosinophils % 1.4 %; Hematocrit 45.4 % (37-53); Lymphocytes # 2.5 10^3/uL (0.8-4.8); Lymphocytes % 38.4 %; Mean Corpuscular HGB Conc 33.7 g/dL (30-55); Mean Corpuscular Hemoglobin 30.7 pg (27-33); Mean Corpuscular Volume 91.2 fl (82-101); Mean Platelet Volume 10.3 fL (7.4-10.4); Monocytes # 0.5 10^3/uL (0.2-0.9); Neutrophils # 3.38 10^3/uL (1.8-7.7); Neutrophils % 52.4 %; Nucleated Red Blood Cells % 0 %; Platelet Count 223 10^3/cmm (157-399); Red Blood Count 4.98 10^6/uL (3.85-5.65); White Blood Count 6.45 10^3/uL (3.29-11.43)
[2024-03-18 21:30] VITALS: BP 139/99; PULSE 96; RESP 16; O2SAT 96
[2024-03-18 21:33] VITALS: BP 139/99; PULSE 96; O2SAT 96
[2024-03-18 21:34] LABS: INR 1.02 (0.8-1.2)
[2024-03-18 21:40] LABS: Alanine Aminotransferase 148 U/L (0-41); Albumin Level 4.5 g/dL (3.5-5.2); Alkaline Phosphatase 106 U/L (40-130); Anion Gap 17.7 (5-19); Aspartate Amino Transferase 62 U/L (0-40); Blood Urea Nitrogen 11 mg/dL (6-20); Calcium 9.7 mg/dL (8.5-10.5); Carbon Dioxide 25 mmol/L (22-29); Chloride 100 mmol/L (98-107); Creatinine Clr Calc Pharmacy 106.9483; Glomerular Filtration Rate 82.8 mL/min (90-130); Glucose 88 mg/dL (65-115); Osmolality Calculated 287 mOsm/kg (285-295); Potassium 3.7 mmol/L (3.5-5.1); Sodium 139 mmol/L (136-145); Total Bilirubin 0.3 mg/dL (0.15-1.2); Total Protein 7.5 g/dL (6.6-8.7)
[2024-03-18 21:44] LABS: Fibrinogen 306 mg/dL (174-498)
== END 2024-03-18 21:35 | disposition home or self-care (01) ==
PROVIDERS: Emergency Provider Emergency Medicine; PCP Family Medicine
DX: T63.001A Toxic effect of unspecified snake venom, accidental (unintentional), initial encounter (principal); S91.032A Puncture wound without foreign body, left ankle, initial encounter; S91.031A Puncture wound without foreign body, right ankle, initial encounter; Z23 Encounter for immunization
CPT/HCPCS: 36415; 80053; 85025; 85384; 85610; 90471; 90715; 99283

== ENCOUNTER 2025-01-09 14:12 | Outpatient (CLI) | payer BC, MEDICAID, SELFPAY ==
--- NOTE | 2025-01-09 15:15 | CT_ITS ---
WS: [id number] CT ABDOMEN AND PELVIS WITH CONTRAST HISTORY: Ventral hernia TECHNIQUE: Imaging performed of the abdomen and pelvis with IV contrast. Single phase imaging of the abdomen. Coronal and sagittal reformats are submitted. All CT scans at [facility] use at least one of these dose optimization techniques: automated exposure control; mA and/or kV adjustment per patient size (includes targeted exams where dose is matched to clinical indication); or iterative reconstruction. IV CONTRAST: Omnipaque 350; 100 mL IV. Oral contrast: No DLP: 468.17 mGy.cm COMPARISON: 09/22/2011 Lower thorax: Lung bases are clear. Heart is normal size. No hiatal hernia. Liver/biliary system: Normal size with no intrahepatic dilatation. Gallbladder: Status post cholecystectomy. Pancreas: Normal size pancreas and pancreatic duct. No adjacent inflammation. Spleen: Normal size spleen. No mass or infarct. Adrenal glands: Normal. Right kidney: Normal. Left kidney: Normal. Aorta: Mild atherosclerosis with no aneurysm. Lymphadenopathy: None. Free fluid: None. GI tract: Normal. No obstruction. No colitis. Normal appendix. Mild sigmoid diverticulosis without acute diverticulitis. Abdominal wall: Fat-containing umbilical hernia. Orifice of the hernia is 2.0 cm. No additional ventral abdominal wall hernias are identified. Pelvis: No free fluid or adenopathy within the pelvis. No definite inguinal hernias. Bones: Bilateral L5 pars defects. CT/CT abdomen pelvis w con* [id number] IMPRESSION: 1. Ventral abdominal wall umbilical hernia containing fat only. 2. No definite inguinal hernia seen. 3. No GI tract obstruction or colitis. 4. Prior cholecystectomy.
[2025-01-09] MEDS: iohexol 350 mg/mL 500 mL Btl (per mL) IV (15:36)
[2025-01-09] MEDS: iohexol 350 mg/mL 500 mL Btl (per mL) PO (15:36)
== END 2025-01-09 14:13 | disposition home or self-care (01) ==
LOC: RAD 14:13
PROVIDERS: PCP Family Medicine; Visit Provider Surgery
DX: K42.9 Umbilical hernia without obstruction or gangrene (principal)
CPT/HCPCS: 74177

== ENCOUNTER 2025-02-20 05:35 | Day surgery (SDC) | payer BC, MEDICAID, SELFPAY ==
[2025-02-20] VITALS (10 sets, daily range): BP systolic 131–155; BP diastolic 83–102; PULSE 73–94; RESP 10–20; TEMP 36.3–36.4; O2SAT 95–98; BMI 25.7
--- NOTE | 2025-02-20 06:46 | P.ANESASSM_ITS ---
Pre-Anesthetic Assessment Height/Weight: Height 1.8 m Weight 83.915 kg Temp Pulse Resp BP Pulse Ox O2 Del Method 97.4 F L 94 16 155/98 98 Room Air 02/20/25 05:55 02/20/25 05:55 02/20/25 05:55 02/20/25 05:55 02/20/25 05:55 02/20/25 05:55 Preop Diagnosis: hernia Operation Date: 02/20/25 07:00 Proposed Procedures p Laparoscopic POSSIBLE OPEN Ventral Hernia Repair w/ Mesh 37521 K43.9(Not Applicable) - Chris Chapman MD Familial anesthetic complications: none Was Beta Cary taken within 24 hours: N/A Was Clonidine taken within 24 hours: N/A Last intake: Intake Last Liquid Date 02/19/25 Last Liquid Time 21:00 Last Solid Date 02/19/25 Last Solid Time 21:00 Social No alcohol and No tobacco Exam alert, oriented x 3, clear to auscultation bilaterally and regular rate & rhythm Airway Cervical ROM: within normal limits Mallampati: Class I Dentition: full History/ROS No significant history except as noted Pulmonary None reported CV/HEM Hypertension None reported Hepatic None reported GI Gastroesophageal Reflux Disease Metabolic None reported Musc/skel None reported Neuropsych Anxiety took klonopin at 0400 Anesthetic Plan ASA status: 2 Anesthesia: General Risk of > 500 ml blood loss (7ml/kg in children): No Medications/Allergies Home Medications ?Medication ?Instructions ?Recorded ?Confirmed ?Last Taken ?Type clonazepam 0.5 mg tablet 0.5 mg PO BID #60 tabs 02/2702/19/25 02/20/25 04:00 Rx Held on 03/07/24. Instructions: Resume on 03/08/24. polyethylene glycol 3350 17 17 g PO DAILY #119 grams 0 03/07/24 02/19/25 02/18/25 Rx gram/dose oral powder (Miralax) hydrocortisone 2.5 % topical cream 1 applic [place] BID hem orrhoids 7 days 12/31/24 02/19/25 02/19/25 Rx with perineal applicator #30 grams (Anusol-HC) docusate sodium 100 mg capsule 100 mg PO DAILY 5 02/19/25 02/18/25 Hi story (Colace) pantoprazole 40 mg tablet,delayed 40 mg PO DAILY 02/1902/19/25 02/18/25 History release (Protonix) Allergies Allergy/AdvReac Type Severity Reaction Status Date / Time Penicillins Allergy swelling Verified 02/20/25 05:51 Current Medications Generic Name Dose Route Start Last Admin Trade Name Miguelq PRN Reason Stop Dose Admin Sodium Chloride 1,000 mls @ 30 mls/hr 02/20/25 05:45 02/20/25 06:16 Sodium Chloride 0.9% IV 02/21/25 05:44 30 mls/hr .Q24H JUAN RAMON Administration Vancomycin HCl 1,500 mg in 300 mls @ 200 mls/hr 02/20/25 05:38 02/20/25 06:18 Vancocin IV 02/20/25 07:07 200 mls/hr 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
--- NOTE | 2025-02-20 06:51 | W.PM.OPSFHP ---
Same Day Surgery H&P Indication for Procedure/HPI DATE OF PROCEDURE: February 20, 2025 CHIEF COMPLAINT/INDICATIONFOR SURGICAL PROCEDURE: Umbilical hernia PREOP DIAGNOSIS: hernia PLANNED PROCEDURE: Operation Date: 02/20/25 07:00 Proposed Procedures p Laparoscopic POSSIBLE OPEN Ventral Hernia Repair w/ Mesh [id number] K43.9(Not Applicable) - Chris Chapman MD Medications/Allergies* Home Medications ?Medication ?Instructions ?Recorded ?Confirmed ?Type docusate sodium 100 mg capsule 100 mg PO DAILY 02/19/25 02/19/25 History (Colace) pantoprazole 40 mg tablet,delayed 40 mg PO DAILY 02/19/25 02/19/25 History release (Protonix) Allergies/Adverse Reactions Allergy/AdvReac Type Severity Reaction Status Date / Time Penicillins Allergy swelling Verified 02/20/25 05:51 Current Medications: Generic Name Dose Route Start Last Admin Trade Name Freq PRN Reason Stop Dose Admin Sodium Chloride 1,000 mls @ 30 mls/hr 02/20/25 05:45 02/20/25 06:16 Sodium Chloride 0.9% IV 02/21/25 05:44 30 mls/hr .Q24H JUAN RAMON Administration Vancomycin HCl 1,500 mg in 300 mls @ 200 mls/hr 02/20/25 05:38 02/20/25 06:18 Vancocin IV 02/20/25 07:07 200 mls/hr WEB SIZER ONE Administration Protocol Pertinent History/Comorbid Conditions* Medical History (Updated 03/26/24 @ 00:00 by RUMA Cochran) Acid reflux Anxiety Surgical History (Updated 03/19/24 @ 05:52 by Elio Hernandez DO) Status post laparoscopic cholecystectomy History of bilateral inguinal hernia repair History of inguinal hernia repair Left inguinal floor weakness, direct hernia. 2012 [facility] Family History (Updated 12/17/20 @ 14:56 by Rosa Rojas MA) Diabetes Cancer Hypertension Stroke Denies family history of Dementia Lung disease Social History Smoking and tobacco/nicotine status: never used tobacco/nicotine Second hand smoke exposure: No Alcohol intake: current Alcohol intake frequency: 0-2 Drinks per Day Alcohol type: beer Substance/Drug Use: current Adopted: No Caregiver/support person: No Lives independently: Yes Household members: none Housing: House Marital status: Single Number of children: 0 service: No Current occupational 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
[2025-02-20] MEDS: BUPivacaine 0.25% INJ 30 mL INJECTION (07:36)
[2025-02-20] MEDS: lidocaine-epi 1% 20 mL INJ INJECTION (08:17)
--- NOTE | 2025-02-20 08:37 | P.OP_ITS ---
Operative Report Date of procedure: February 20, 2025 Pre-op diagnosis: Umbilical hernia Post-op diagnosis: Same Post-op findings: Incarcerated umbilical hernia measuring 2 cm and containing fat only Procedure done: Laparoscopic repair of incarcerated umbilical hernia measuring 2 cm Surgeon: Chris Chapman MD Clinical Program Consultant: KATY OR STaff Estimated blood loss: 5 Brief History: This is a 40-year-old male who presented to my office with an umbilical hernia, after discussion of all risk benefits decided proceed to the OR for laparoscopic possible open repair. Procedure: Patient was brought into the OR, he was placed in a supine position. General anesthesia was given. The abdomen was prepped and draped in the usual sterile fashion. A timeout was conducted. The abdomen was accessed via a 5 mm Optiview trocar in the left upper quadrant, pneumoperitoneum was obtained no evidence of visceral injury during entry. Additional 12 mm trocar was placed in the left flank and a 5 mm trocar was placed in the left lower quadrant all under direct visualization. Umbilical hernia was noted, it appeared to be containing only preperitoneal fat. With Lige sure and bowel and light dissection I was able to reduce the contents of the hernia and the hernia sac and contents were resected and retrieved to be sent to pathology. The edges of the hernia were clear up and final measurement of the hernia defect was about 2 cm. I then proceeded to close the fascial defect using #1 STRATAFIX PDS suture. Once the defect was completely closed I proceeded to clear out the area around the defect with LigaSure to allow for a good landing space for the mesh. An [address] mesh was inserted into the abdomen, the positioning system was retrieved via a small supraumbilical incision using a Hola-Ramses. The mesh was fixated with secure strap. Exoskeleton of the mesh was then removed through the 12 mm trocar. Good position of the mesh was noted no significant evidence of bleeding. I then proceeded to do a laparoscopic guided tap block using 15 cc of bupivacaine on bilateral sides of the abdomen. The 12 mm trocar was removed and the trocar site was closed using a 0 Vicryl in a Hola Vicente suture passer under direct visualization. The left lower quadrant trocar was removed under direct visualization, the pneumoperitoneum was evacuated using the left upper quadrant trocar and this was subsequently removed. Wounds were closed using #3- 0 Vicryl for the subcutaneous tissue #4 Monocryl for skin and Dermabond was applied. At the end of the procedure all counts were correct the patient tolerated well the procedure was transferred to the PACU in stable condition
[2025-02-20] MEDS: oxyCODONE 5 mg IR Tab/Cap PO (09:30)
--- NOTE | 2025-02-20 09:45 | ANE.PACU2 ---
Inpatient post-anesthesia follow up: Airway intact: Yes Vital signs: Temperature 97.3 F Pulse Rate 89 Respiratory Rate 16 Blood Pressure 138/88 Pulse Oximetry 95 Oxygen Delivery Me thod Room Air Oxygen Flow Rate 6 Fraction of Inspir ed Oxygen Hydration adequate: Yes Nausea and vomiting: No Pain level: 1 Mental status: Baseline
== END 2025-02-20 09:45 | disposition home or self-care (01) ==
PROVIDERS: PCP Internal Medicine; Visit Provider Surgery
PROC: 0WQF4ZZ Repair Abdominal Wall, Percutaneous Endoscopic Approach (ICD-10-PCS; CPT 49592; principal; 2025-02-20 07:00)
DX: K42.9 Umbilical hernia without obstruction or gangrene (principal); I10 Essential (primary) hypertension; K21.9 Gastro-esophageal reflux disease without esophagitis; F41.9 Anxiety disorder, unspecified
CPT/HCPCS: 49592; 88302; C1781; J0131; J1171; J1885; J2371; J2704; J3373; J3490; J7030; J9999